=== PATIENT | male | born 1990 | race African-American/Black ===

== ENCOUNTER 2018-10-03 01:25 | Emergency (ER) | payer SELFPAY ==
[~2018-10-03] VITALS: Ht 185.4 cm; Wt 79.0 kg
[2018-10-03] MEDS ORDERED: KETOROLAC 60MG/2ML VIAL IM ONE (02:30)
[2018-10-03] MEDS ORDERED: DIAZEPAM 5 MG TABLET PO ONE (02:30)
[2018-10-03 03:41] VITALS: BP 128/56
== END 2018-10-03 03:42 | disposition home or self-care (01) ==
LOC: ER 01:25
DX: R25.2 Cramp and spasm (principal); F12.90 Cannabis use, unspecified, uncomplicated
CPT/HCPCS: 96372; 99283; J1885; 99285

== ENCOUNTER 2018-10-21 11:32 | Inpatient (IN) | payer OTHER, MEDICAID ==
[~2018-10-21] VITALS: Ht 182.9 cm; Wt 78.5 kg
[2018-10-21] MEDS ORDERED: IBUPROFEN 600MG TABLET PO ONE (13:15)
[2018-10-21 15:11] LABS: BASOPHILS % 0.9 % (0.0-2.0); HEMATOCRIT. 41.7 % (42.0-52.0); HEMOGLOBIN. 14.1 g/dL (14.0-18.0); LYMPHOCYTES % 30.2 % (20.0-50.0); MEAN CORPUSCULAR HEMOGLOBIN 29.3 pg (28.0-32.0); MEAN CORPUSCULAR VOLUME 86.6 fL (80.0-94.0); MEAN PLATELET VOLUME 8.8 fl (7.4-10.4); MONOCYTES % 6.6 % (2.0-8.0); NEUTROPHILS % 58.3 % (40.0-76.0); PLATELET 152 x1000/uL (130-400); RED BLOOD CELL COUNT 4.81 mill/uL (4.7-6.1)
[2018-10-21 15:18] LABS: CHLORIDE 105 mEq/L (98-107)
[2018-10-21 15:22] LABS: D-DIMER 0.43 mg/L FEU (<0.50); PARTIAL THROMBOPLASTIN TIME 25.4 sec (23.4-31.0); PROTHROMBIN TIME 10.5 sec (9.6-11.0)
[2018-10-21 15:36] LABS: *BARBITURATES SCREEN URINE NEGATIVE (NEGATIVE)
[2018-10-21 15:37] LABS: *AMPHETAMINES SCREEN URINE NEGATIVE (NEGATIVE); *BENZODIAZEPINES SCREEN URINE NEGATIVE (NEGATIVE); *COCAINE SCREEN URINE NEGATIVE (NEGATIVE); METHADONE URINE SCREEN NEGATIVE (NEGATIVE); OPIATES URINE SCREEN NEGATIVE (NEGATIVE); PHENCYCLIDINE URINE SCREEN NEGATIVE (NEGATIVE)
[2018-10-21 15:38] LABS: CANNABINOID URINE SCREEN PRESUMTIVE POSITIVE (NEGATIVE)
[2018-10-21] MEDS ORDERED: ASPIRIN 325MG EC TABLET PO ONE (17:00)
[2018-10-21 22:02] VITALS: BP 113/65
[2018-10-21 23:03] VITALS: BP 113/65
[2018-10-22] VITALS: BP 103/47
[2018-10-22 01:29] LABS: LDL CHOLESTEROL 70 mg/dL (5-100)
[2018-10-22 01:31] LABS: CREATINE KINASE 246 IU/L (39-308)
[2018-10-22 01:32] LABS: CREATINE KINASE MB FRACTION < 1.0 ng/mL (0.5-3.6)
[2018-10-22 01:34] LABS: HDL CHOLESTEROL 43 mg/dL (40-59)
[2018-10-22 04:00] VITALS: BP 104/49
[2018-10-22 08:00] VITALS: BP 101/53
[2018-10-22] MEDS ORDERED: ENOXAPARIN 40MG/0.4ML SYR SUBCUT SCH (09:00)
[2018-10-22] MEDS ORDERED: ASPIRIN 81MG EC TABLET PO SCH (09:00)
[2018-10-22 10:14] LABS: HEMATOCRIT 40.6 % (42.0-52.0); HEMOGLOBIN 13.9 g/dL (14.0-18.0); MEAN CORPUSCULAR HEMOGLOBIN 29.5 pg (28.0-32.0); MEAN CORPUSCULAR VOLUME 86.5 fL (80.0-94.0); PLATELET 150 x1000/uL (130-400); RED BLOOD CELL COUNT 4.69 mill/uL (4.7-6.1); RED CELL DISTRIBUTION WIDTH 13.9 % (11.6-14.6)
[2018-10-22 10:28] LABS: CHLORIDE 110 mEq/L (98-107)
[2018-10-22 10:36] LABS: CREATINE KINASE 222 IU/L (39-308)
[2018-10-22 10:43] LABS: CREATINE KINASE MB FRACTION < 1.0 ng/mL (0.5-3.6)
[2018-10-22 12:00] VITALS: BP 109/56
[2018-10-22] MEDS ORDERED: KETOROLAC 15MG/ML VIAL IV SCH (12:00)
[2018-10-22 16:00] VITALS: BP 108/62
== END 2018-10-22 18:03 | disposition left against medical advice (07) | DRG 203 ==
LOC: ER 11:32 → 6WST 17:54 → EDBEDREQ 17:59 → ENRESERV 19:47
PROVIDERS: ADMIT Internal Medicine; ATTEND Internal Medicine
DX: M94.0 Chondrocostal junction syndrome [Tietze] (principal); F12.90 Cannabis use, unspecified, uncomplicated; R00.1 Bradycardia, unspecified; Z53.21 Procedure and treatment not carried out due to patient leaving prior to being seen by health care provider
CPT/HCPCS: 36415; 71045; 80048; 80061; 80305; 82550; 82553; 83735; 83880; 84484; 85027; 85379; 93005; 93306; 93970; 99285; J1650